=== PATIENT | male | born 1965 | race Caucasian/White ===

== ENCOUNTER 2024-05-14 07:09 | Day surgery (SDC) | payer BC ==
[~2024-05-14 07:09] MED LIST: EPINEPHrine 0.3 MG in Ophthalmic Irrigation Solution 500 ML IRR SCH
[2024-05-14] MEDS ORDERED: Cyclopentolate 1% Opth Drop 2 ML BOT ONE (08:10)
[2024-05-14] MEDS ORDERED: PHENYLephrine 2.5% Ophth Soln 15 ml Bottle ONE (08:10)
[2024-05-14] MEDS ORDERED: PROPOFOL 20 ML ONE (09:06)
[2024-05-14] MEDS ORDERED: Midazolam HCl 2 mg/2 ml Vial ONE (09:07)
[2024-05-14] MEDS ORDERED: fentaNYL 50 mcg/mL 1 mL Vial ONE (09:07)
[2024-05-14] MEDS ORDERED: Lidocaine 1% PF 5 ML VIAL ONE ×2 (09:12→09:43)
[2024-05-14] MEDS ORDERED: CEFAZOLIN 1 GM VIAL ONE (09:43)
[2024-05-14] MEDS ORDERED: Triamcinolone 40 MG/ML VIAL ONE (09:43)
[2024-05-14] MEDS ORDERED: Lidocaine 4% PF 5 ML AMP ONE (09:43)
[2024-05-14] MEDS ORDERED: Bupivacaine 0.75% 10 ML VIAL ONE (09:43)
== END 2024-05-14 10:48 | disposition home or self-care (01) ==
LOC: SDC 07:09 → EDBD 07:09 → SDC 10:48
PROVIDERS: ATTEND Ophthalmology Retina Specialist
PROC: 08T43ZZ Resection of Right Vitreous, Percutaneous Approach (ICD-10-PCS; principal; 2024-05-14)
DX: H33.001 Unspecified retinal detachment with retinal break, right eye (principal); Z79.82 Long term (current) use of aspirin
CPT/HCPCS: 67025; J0171; J2250; J2704; J3010